=== PATIENT | male | born 1960 | race Caucasian/White ===

== ENCOUNTER → 2016-07-19 | Outpatient (CLI) | payer OTHER, BC ==
--- NOTE | 2016-07-19 15:29 | RAD ---
Indication pain. AP and lateral views of the left knee were obtained. There is a total knee replacement. No complication is seen. No acute bony finding is apparent
--- NOTE | 2016-07-19 15:30 | RAD ---
Indication hip pain for 2 weeks. No injury. AP and frog leg views of the left hip were obtained. No acute or significant bony finding is seen
== END | disposition home or self-care (01) ==
LOC: DXRADRC 15:05
PROVIDERS: ATTEND Physician Assistant
DX: M25.462 Effusion, left knee (principal); M25.552 Pain in left hip
CPT/HCPCS: 73502; 73560